=== PATIENT | male | born 1970 | race Hispanic/Latino ===

== ENCOUNTER 2018-09-20 16:14 | Emergency (ER) | payer SELFPAY ==
--- NOTE | 2018-09-20 17:00 | RAD REPORT ---
EXAM DESCRIPTION: RAD - Forearm Right - 09/20/2018 4:43 pm CLINICAL HISTORY: Right arm pain status post fall FINDINGS: An impacted fracture involves the distal radius with mild to moderate displacement of frac ture fragments. An avulsion fracture also involves the ulnar styloid process
[2018-09-20] MEDS ORDERED: HYDROCODONE/APAP 10/325 TAB ONE (17:09)
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
== END 2018-09-20 17:50 | disposition home or self-care (01) ==
LOC: ER 16:14
PROC: 2W3CX1Z Immobilization of Right Lower Arm using Splint (ICD-10-PCS; principal; 2018-09-20)
DX: S52.501A Unspecified fracture of the lower end of right radius, initial encounter for closed fracture (principal); S52.611A Displaced fracture of right ulna styloid process, initial encounter for closed fracture; W11.XXXA Fall on and from ladder, initial encounter; I10 Essential (primary) hypertension; Z72.0 Tobacco use
CPT/HCPCS: 99284